=== PATIENT | male | born 1965 | race Caucasian/White ===

== ENCOUNTER 2021-11-22 00:42 | Inpatient (IN) ==
[2021-11-22] MEDS ORDERED: SODIUM CHLORIDE 0.9% 1000ML 1,000 ML IV ONE (00:58)
[2021-11-22] MEDS ORDERED: VANCOMYCIN HCL 1,750 MG in SODIUM CHLORIDE 0.9% 500 ML IV ONE (00:59)
[2021-11-22] MEDS ORDERED: MoRPHine SULFATE 4 MG/ML 1 ML CARP\\VIAL IV STA ×2 (00:59→03:11)
[2021-11-22] MEDS ORDERED: PIPERACILLIN/TAZOBACTAM 4.5 GM/120 ML BAG IV ONE (00:59)
[2021-11-22] MEDS ORDERED: ONDANSETRON INJ 2 MG/ML 2 ML VIAL IV STA (00:59)
[2021-11-22] MEDS ORDERED: VANCOMYCIN CONSULT ACTIVE PRN (00:59)
[2021-11-22] MEDS ORDERED: PIPERACILL/TAZOBAC CONSULT ACTIVE PRN (00:59)
--- NOTE | 2021-11-22 01:02 | Emergency Department Note ---
Impression & Plan Tenosynovitis of hand ADMIT ED Provider Note HPI: The patient is a 56-year-old gentleman who presents the emergency department chief complaint of left hand swelling for the past 2 days. Patient states he is unsure why this occurred. He states he does have a history of IV drug use but denies using any IV drugs in the past 3 years. Patient arrives with significant fusiform swelling of the dorsal aspect of the left hand on arrival, does appear to have some fluctuance between the fourth and fifth MCP joint area. There is no active purulent drainage from the area, patient has limited range of motion of all five digits of the hand secondary to pain and dorsal swelling. He is slightly tachycardic on arrival, he is afebrile. Patient denies any recent injuries, denies any known trauma to the area. He mainly denies any recent IV drug use. ROS: -MSK: Left hand swelling/pain *10 point review systems was conducted and is otherwise negative unless stated above *Outpatient medications and allergy history reviewed PE: General: Alert, NAD HEENT: Normocephalic, atraumatic Eyes: Extraocular eye movement is intact, no scleral erythema Pulmonary: Clear to auscultation bilaterally, no wheezing Cardio: Regular rate and rhythm GI: Abdomen is soft, nontender : No suprapubic tenderness MSK: Dorsal swelling throughout the entire aspect of the left hand with some moderate overlying erythema, there is no purulent drainage, range of motion is limited in all five digits of the left hand secondary to pain the patient does maintain flexion and extension of the digits without any fusiform swelling of the digits themselves, capillary refill is intact in all five digits of the left hand Skin: No evidence of rash, left hand findings as above Neuro: Alert, no focal deficits Psychiatric: Cooperative house 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 There is fluid tracking along the extensor tendon sheath over the distal hand involving the second, third, and fourth digits consistent with tenosynovitis. No subcutaneous gas or foreign body is identified. No abscess is identified. The osseous structures are intact and normally aligned. No acute fracture or dislocation is seen. Radiologist: Tong Luz MD Medical Decision Making: Patient presented to the emergency department with significant swelling on the dorsal aspect of his left hand. He denies any history of recent IV drug use. IV was established, blood work obtained, blood cultures were also drawn, patient was started on IV antibiotics with vancomycin and Zosyn prophylactically. CT imaging of the hand was obtained that shows diffuse subcutaneous edema over the dorsum of the hand, there is fluid tracking along the extensor tendon sheath over the distal hand that involves the second, third, and fourth digits consistent with tenosynovitis. There is no obvious identifiable abscess. I discussed the case with on-call orthopedics, Dr. Castellanos, he is in agreement for consultation and states one of his partners will likely be evaluating the patient for potential operative intervention. Patient will be admitted to the medicine team following my discussion with the hospitalist on-call, Dr. Ellison.of note, patient did incidentally test positive for COVID-19, denies any recent cough or shortness of breath. Patient was admitted in stable condition. Diagnosis: 1. Tenosynovitis of the left hand 2. Left hand pain/swelling 3. COVID-19 infection 4. Elevated ESR and CRP 5. History of IV drug abuse Disposition: Admission Abdiel Nelson DO Emergency Medicine Past Med/Surg History Social History Smoking Status: Current every day smoker Preferred Language: Yakut Feels Safe at Home: Yes Allergies Allergies Allergy/AdvReac Type Severity Reaction Status Date / Time No Known Allergies Allergy Unverified 11/22/21 00:49 Home Meds Home Medications Medication Instructions Recorded Confirmed No Known Home Medications 11/22/21 11/22/21 Results & Data (ED) Vital Signs Vital Signs - 24 hr 11/22/21 00:47 11/22/21 02:38 11/22/21 03:22 Temperature 36.7 C Temperature Source Temporal Artery Scan Pulse Rate 115 H Pulse Rate [Bilateral] 97 H 94 H Pulse Rhythm [Bilateral] Regular Regular Pulse Strength [Bilateral] Normal Normal Respiratory Rate 20 18 17 Respiratory Effort / Characteristics Non-Labored Non-Labored Spontaneous Non-Labored Spontaneous Respiratory Depth Normal Normal Normal Respiratory Pattern Regular Regular Blood Pressure 160/100 H Blood Pressure [Right Arm] 159/101 H 167/95 H Blood Pressure Mean 120 Blood Pressure Mean [Right Arm] 120 119 Blood Pressure Position [Right Arm] Sitting Sitting Pulse Oximetry 99 98 98 Oxygen Delivery Method Room Air Room Air Room Air Sepsis Recent Fever Within 48 Hours No Sepsis New/Unexplained Change in Mental Status No Sepsis Action Taken by Nursing No Action Required Laboratory Data Result diagrams: 11/22/21 01:44 11/22/21 01:44 Lab Results 11/22/21 11/22/21 11/22/21 Range/Units 01:44 01:44 01:44 WBC 19.26 H (4.8-10.8) K/uL RBC 4.97 (4.7-6.1) M/uL Hgb 14.8 (14.0-18.0) g/dL Hct 42.6 (42-52) % MCV 85.7 (80-100) fL MCH 29.8 (25-34) pg MCHC 34.7 (32-36) g/dL RDW Std Deviation 41.2 (36.4-46.3) fL RDW Coeff of Luna 13.2 (11.5-14.5) % Plt Count 284 (130-400) K/uL MPV 9.7 (7.4-10.4) fL Immature Gran % (Auto) 0.4 % Neut % (Auto) 83.8 % Lymph % (Auto) 6.1 % [place] % (Auto) 9.6 % Eos % (Auto) 0.0 % Baso % (Auto) 0.1 % Neut # (Auto) 16.14 H (1.4-6.5) K/uL Lymph # (Auto) 1.18 L (1.2-3.4) K/uL [place] # (Auto) 1.85 H (0.11-0.59) K/uL Eos # (Auto) 0.00 (0-0.5) K/uL Baso # (Auto) 0.02 (0-0.2) K/uL Immature Gran # (Auto) 0.07 H (0.00-0.02) K/uL ESR 62 H (0-20) mm/hr Sodium 132 L (136-145) mmol/L Potassium 3.4 L (3.5-5.1) mmol/L Chloride 99 (98-107) mmol/L Carbon Dioxide 23 (21-32) mmol/L Anion Gap 10 (3-11) BUN 11 (6-23) mg/dl Creatinine 0.84 (0.6-1.4) mg/dl Est Cr Clr Drug Dosing 102.6 ml/min Est GFR ( Amer) 114.2 ml/min Est GFR (Non-Af Amer) 98.6 ml/min BUN/Creatinine Ratio 13.1 (10-20) Glucose 137 H (70-99(Fasting)) mg/dl Calcium 10.1 (8.5-10.1) mg/dl C-Reactive Protein 10.19 H (0-0.5) mg/dl SARS-CoV-2, RNA, NAAT (NEGATIVE) 11/22/21 Range/Units 03:34 WBC (4.8-10.8) K/uL RBC (4.7-6.1) M/uL Hgb (14.0-18.0) g/dL Hct (42-52) % MCV (80-100) fL MCH (25-34) pg MCHC (32-36) g/dL RDW Std Deviation (36.4-46.3) fL RDW Coeff of Luna (11.5-14.5) % Plt Count (130-400) K/uL MPV (7.4-10.4) fL Immature Gran % (Auto) % Neut % (Auto) % Lymph % (Auto) % [place] % (Auto) % Eos % (Auto) % Baso % (Auto) % Neut # (Auto) (1.4-6.5) K/uL Lymph # (Auto) (1.2-3.4) K/uL [place] # (Auto) (0.11-0.59) K/uL Eos # (Auto) (0-0.5) K/uL Baso # (Auto) (0-0.2) K/uL Immature Gran # (Auto) (0.00-0.02) K/uL ESR (0-20) mm/hr Sodium (136-145) mmol/L Potassium (3.5-5.1) mmol/L Chloride (98-107) mmol/L Carbon Dioxide (21-32) mmol/L Anion Gap (3-11) BUN (6-23) mg/dl Creatinine (0.6-1.4) mg/dl Est Cr Clr Drug Dosing ml/min Est GFR ( Amer) ml/min Est GFR (Non-Af Amer) ml/min BUN/Creatinine Ratio (10-20) Glucose (70-99(Fasting)) mg/dl Calcium (8.5-10.1) mg/dl C-Reactive Protein (0-0.5) mg/dl SARS-CoV-2, RNA, NAAT POSITIVE A* (NEGATIVE) Administered Medications Lactated Ringer's (Lr) 1,000 mls @ 60 mls/hr IV .[id number] ONE Stop: 11/22/21 21:35 Last Admin: 11/22/21 05:01 Dose: 60 mls/hr Documented by: [id number] Nicotine (Nicotine 21 Mg/24 Hr Tdsy) 21 mg TD QAM NETO Stop: 12/22/21 04:59 Last Admin: 11/22/21 05:30 Dose: 21 mg Documented by: [id number] Discontinued Medications Sodium Chloride (Nss 1000ml) 1,000 mls @ 999 mls/hr IV .[id number] ONE Stop: 11/22/21 01:58 Last Infusion: 11/22/21 03:12 Dose: 0 mls/hr Documented by: [id number] Admin: 11/22/21 01:46 Dose: 999 mls/hr Documented by: [id number] Piperacillin Sod/Tazobactam Sod (Zosyn) 4.5 gm in 120 mls @ 240 mls/hr IV NOW ONE Stop: 11/22/21 01:28 Last Infusion: 11/22/21 02:51 Dose: 0 mls/hr Documented by: [id number] Admin: 11/22/21 02:09 Dose: 240 mls/hr Documented by: [id number] Vancomycin HCl 1,750 mg/ (Sodium Chloride) 535 mls @ 200 mls/hr IV NOW ONE Stop: 11/22/21 03:39 Last Admin: 11/22/21 02:46 Dose: 200 mls/hr Documented by: [id number] Ioversol (Optiray 320 100ml) 100 ml IV ONCE ONE Stop: 11/22/21 03:27 Last Admin: 11/22/21 03:26 Dose: 93 ml Documented by: [id number] Ketorolac Tromethamine (Ketorolac Tromethamine 15 Mg/Ml Vial) 15 mg IV NOW ONE Stop: 11/22/21 04:50 Last Admin: 11/22/21 04:58 Dose: 15 mg Documented by: [id number] Morphine Sulfate (Morphine Sulfate 4 Mg/Ml 1 Ml Carp\Vial) 4 mg IV NOW STA Stop: 11/22/21 01:00 Last Admin: 11/22/21 01:30 Dose: 4 mg Documented by: [id number] Morphine Sulfate (Morphine Sulfate 4 Mg/Ml 1 Ml Carp\Vial) Confirm Administered Dose 4 mg .ROUTE .STK-MED ONE Stop: 11/22/21 03:08 Last Admin: 11/22/21 03:11 Dose: 4 mg Documented by: [id number] Morphine Sulfate (Morphine Sulfate 4 Mg/Ml 1 Ml Carp\Vial) 4 mg IV NOW STA Stop: 11/22/21 03:12 Last Admin: 11/22/21 03:12 Dose: Not Given Documented by: [id number] Ondansetron HCl (Ondansetron Inj 2 Mg/Ml 2 Ml Vial) 4 mg IV NOW STA Stop: 11/22/21 01:00 Last Admin: 11/22/21 01:31 Dose: 4 mg Documented by: [id number] Potassium Chloride (Potassium Chloride Crtab 20 Meq Tabcr) 40 meq PO NOW STA Stop: 11/22/21 04:17 Last Admin: 11/22/21 04:59 Dose: 40 meq Documented by: [id number] Discharge Plan Visit Data Chief Complaint: Hand Injury/Pain Stated Complaint: LEFT 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 ED Provider: Abdiel Nelson Discharge Problem: Tenosynovitis of hand Discharge Instructions Interventions: ED Discharge Assessment Last Done: 11/22/21 05:46
[2021-11-22 01:59] LABS: Basophils # (auto) 0.02 K/uL (0-0.2); Basophils % (auto) 0.1 %; Hematocrit (blood only) 42.6 % (42-52); Hemoglobin 14.8 g/dL (14.0-18.0); Immature Granulocytes # (auto) 0.07 K/uL (0.00-0.02); Immature Granulocytes % (auto) 0.4 %; Lymphocytes # (auto) 1.18 K/uL (1.2-3.4); Lymphocytes % (auto) 6.1 %; Mean Corpuscular Hemoglobin 29.8 pg (25-34); Mean Corpuscular Hgb Conc 34.7 g/dL (32-36); Mean Corpuscular Volume 85.7 fL (80-100); Mean Platelet Volume 9.7 fL (7.4-10.4); Monocytes # (auto) 1.85 K/uL (0.11-0.59); Monocytes % (auto) 9.6 %; Neutrophils # (auto) 16.14 K/uL (1.4-6.5); Neutrophils % (auto) 83.8 %; Platelet Count 284 K/uL (130-400); RDW Coefficient of Variation 13.2 % (11.5-14.5); RDW Standard Deviation 41.2 fL (36.4-46.3); Red Blood Count 4.97 M/uL (4.7-6.1); White Blood Count 19.26 K/uL (4.8-10.8)
[2021-11-22 02:59] LABS: BUN Creatinine Ratio 13.1 (10-20); C Reactive Protein 10.19 mg/dl (0-0.5); Calcium 10.1 mg/dl (8.5-10.1); Creatinine Clr Calc Pharmacy 102.6 ml/min; Est GFR (African American) 114.2 ml/min; Est GFR (Non-African American) 98.6 ml/min; Potassium 3.4 mmol/L (3.5-5.1)
[2021-11-22] MEDS ORDERED: MoRPHine SULFATE 4 MG/ML 1 ML CARP\\VIAL ONE (03:07)
[2021-11-22] MEDS ORDERED: OPTIRAY 320 100ml IV ONE (03:26)
[2021-11-22] MEDS ORDERED: POTASSIUM CHLORIDE CRTAB 20 MEQ TABCR PO STA (04:16)
--- NOTE | 2021-11-22 04:24 | History & Physical Report ---
Date of Service November 22, 2021 Assessment & Plan (1) Sepsis: Plan: Secondary to left hand cellulitis ? Active IVDU asymptomatic COVID-19 infection situational hypertension Hyperglycemia rule out DM Hypokalemia Ongoing tobacco abuse Medical telemetry CS, Doxycycline, Cefepime Orthopedics consult Re: Left hand cellulitis, N.p.o. until patient evaluated by orthopedics in a.m. in anticipation of procedure. COVID-19 precautions analgesia Replace potassium, check magnesium check hemoglobin A1c check urine drug screen Nicotine patch DVT prophylaxis. Lovenox subcu Full code Text document was generated using [employer] voice recognition software. It may contain grammatical or spelling errors. Kindly contact undersigned for clarification of any documentation item in question. History of Present Illness Chief Complaint: Left hand swelling Primary Care Provider: NO PCP History obtained from patient and records. Medical history significant for ongoing tobacco abuse, past history IV drug use as per patient. 2 days history of painful left hand swelling without fever chills. Patient not sure how he got swelling. 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 Patient claims last IV drug use was about 3 years ago. No chest pain, no shortness of breath. No cough symptoms. No recent COVID-19 contacts. Patient has not received COVID-19 vaccination. No prior episodes as per patient. IV vancomycin and Zosyn given at the ER. 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 Allergies Allergy/AdvReac Type Severity Reaction Status Date / Time No Known Allergies Allergy Unverified 11/22/21 00:49 Home Medications Medication Instructions Recorded Confirmed Type No Known Home Medications 11/22/21 11/22/21 History Past Med/Surg History Social History Smoking Status: Current every day smoker Hx Substance Use: Yes Preferred Language: Kittitian Communication Ability: Effective Rice Drier Operator Required: No Beliefs That Will Affect Care: None Current Living Situation: Significant Other Other Information That Helps Us Care for You: Yes Feels Safe at Home: Yes Safety Concerns: Feels Safe At This Time Assistive Devices: None Review of Systems Review of Systems: As per HPI, all 10 systems reviewed, all other ROS negative Physical Exam Physical Exam: GENERAL: uncomfortable, no respiratory distress SKIN: Normal color, warm HEENT: [place] palpebral conjunctivae, no ptosis, dry buccal mucosa NECK : Supple, no tenderness CHEST : CTA, no tenderness HEART : Tachycardic, no obvious murmurs ABDOMEN: no distention, nontender EXTREMITIES : Tender erythematous swelling left hand dorsum, no LE swelling/tenderness, no other conspicuous deformities noted NEUROLOGIC : Coherent, no facial asymmetry, no other gross focality Results & Data Results & Data ([facility]) Vital Signs (Past 12 Hours) Vital Signs Temp Pulse Pulse Resp BP BP Pulse Ox 11/22/21 02:38 97 H 18 159/101 H 98 11/22/21 00:47 36.7 C 115 H 20 160/[address] left hand initial read: There is diffuse subcutaneous edema over the dorsumof the hand. There is fluid tracking along the extensor tendon sheath over the distal hand involving the second, third, and fourth digits consistent with tenosynovitis. No subcutaneous gas or foreign bodyis identified. No abscess is identified. The osseous structures are intact and normallyaligned. No acute fracture or dislocation is seen. Chest x-ray as per my interpretation no congestion EKG as per my interpretation : Rate 90, NSR, normal axis, no ischemia
[2021-11-22] MEDS ORDERED: KETOROLAC TROMETHAMINE 15 MG/ML VIAL IV ONE (04:49)
[2021-11-22] MEDS ORDERED: LORazepam 2 MG/1 ML VIAL IV PRN (04:56)
[2021-11-22] MEDS ORDERED: LACTATED RINGER'S 1,000 ML IV ONE (04:56)
[2021-11-22] MEDS: NICOTINE 21 MG/24 HR TDSY TD SCH (05:30)
[2021-11-22 05:44] LABS: Albumin Level 3.7 gm/dl (3.4-5.0); Bilirubin Direct 0.2 mg/dl (0-0.2); Bilirubin,Total 0.8 mg/dl (0.2-1.0); Magnesium 1.6 mg/dl (1.7-2.4)
[2021-11-22] MEDS ORDERED: PROMETHAZINE HCL 12.5 MG in SODIUM CHLORIDE 0.9% 50 ML IV PRN (05:52)
[2021-11-22] MEDS ORDERED: MAGNESIUM SULFATE / D5W 1 GM/100 ML BAG IV ONE (06:33)
--- NOTE | 2021-11-22 07:47 | XRay Report ---
XR chest 1V portable HISTORY: sepsis COMPARISON: None. FINDINGS: The cardiac silhouette is normal in size. No pleural effusions. No pneumothorax. No focal l licha consolidations to suggest pneumonia. No evidence for pulmonary edema. IMPRESSION: No acute process. ACT 112: Negative or not required by law. Electronically signed by: Xavier Mason M.D. 11/22/2021 7:45 AM
[2021-11-22 07:50] LABS: Estimated Average Glucose 126 mg/dl
[2021-11-22] MEDS: ACETAMINOPHEN 325 MG TAB PO PRN ×3 (07:55→20:56)
[2021-11-22] MEDS: oxyCODONE HCL IR 5 MG TAB (IMMEDIATE RELEASE) PO PRN ×2 (07:55→14:03)
[2021-11-22] MEDS: CEFEPIME 2,000 MG in SYRINGE 0 ML IV SCH ×2 (07:56→17:51)
--- NOTE | 2021-11-22 07:56 | XRay Report ---
XR hand LT min 3V routine CLINICAL HISTORY: PAIN. Evaluate for possible foreign body COMPARISON STUDY: No previous studies for comparison. TECHNIQUE: 3 left hand views FINDINGS: Bones: There is no evidence for an acute fracture or dislocation. There is no lytic or blastic lesion . Joints: The joint spaces are maintained. The bones are in anatomic alignment. Soft tissues: There is moderate soft tissue swelling seen particularly along the dorsum of the hand. There is no radiopaque foreign body. IMPRESSION: 1. No acute osseous pathology. 2. Moderate dorsal soft tissue swelling. ACT 112: Negative or not required by law. Electronically signed by: Darwin Sanford M.D. 11/22/2021 7:55 AM
[2021-11-22] MEDS: ENOXAPARIN INJ 40 MG/0.4 ML SYR SQ SCH (07:57)
[2021-11-22] MEDS ORDERED: DOXYCYCLINE HYCLATE 100 MG CAP PO SCH (09:00)
--- NOTE | 2021-11-22 09:02 | CT Scan Report ---
CT hand LT w con CLINICAL HISTORY: swelling. Eval for abscess dorsally . Swelling for 2 days COMPARISON STUDY: Standard radiographs from 11/22/2021 CT DOSE: 281.74 mGy.cm TECHNIQUE: Standard CT of the left hand is performed with Optiray 320, 93 mL of IV contrast. Multipla jeremiah reconstruction is performed. A dose lowering technique was utilized adhering to the principles o f ALARA. FINDINGS: Bones: There is no evidence for an acute fracture or dislocation. There are no lytic or blastic lesio ns. Joints: The joint spaces are maintained. The bones are in anatomic alignment. Soft tissues: There is a thick-walled, rim-enhancing fluid collection present along the dorsum of th e hand measuring approximately 3.9 x 1.0 x 5.6 cm in transverse, AP and craniocaudad dimensions. This is most characteristic of the presence of an abscess. Skin thickening and subcutaneous edema are als o present. There is no evidence for foreign body. IMPRESSION: CT confirms a thick-walled, rim-enhancing fluid collection along the dorsum of the hand m ost characteristic of the presence of an abscess. ACT 112: Negative or not required by law. Electronically signed by: Darwin Sanford M.D. 11/22/2021 9:00 AM
--- NOTE | 2021-11-22 10:27 | Pharmacy Report ---
Pharmacy Abx Dose Short Note - Date of Service November 22, 2021 - Assessment & Plan Assessment * 56 year old M receiving cefepime and vancomycin for treatment of hand cellulitis / possible abscess. 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 * Hx IVDU, last used ~ 3 years ago * SCr likely at/near baseline at 0.84 mg/dL Vancomycin * Will dose via AUC estimate * Will utilize troughs to help estimate AUC * Goal AUC 400-600 mcg/mL/hr Plan * Vancomycin 1250 mg IV q12h * Trough 11/23 @ 1330 Pharmacy will continue to follow and will adjust dose/frequency as necessary. Thank you.
[2021-11-22] MEDS: KETOROLAC TROMETHAMINE 15 MG/ML VIAL IV PRN ×2 (11:30→18:48)
[2021-11-22 12:20] LABS: Appearance Urine Clear (Clear); Bacteria Urine Automated Negative (Negative); Bilirubin Urine Negative (Negative); Blood Urine Negative (Negative); Color Urine Dark Yellow; Glucose Urine UA Negative (Negative); Ketones Urine 1+ (Negative); Leukocyte Esterase Urine Trace (Negative); Nitrite Urine Negative (Negative); Protein Urine Trace (Negative); RBC Urine Automated 0-4 /hpf (0-4); Specific Gravity Urine 1.041 (1.000-1.030); Urobilinogen Urine Negative (Negative); pH Urine 5.5 (4.5-7.5)
[2021-11-22 13:01] LABS: Amphetamines+Metham, Urine Pos (Neg); Barbiturates, Urine Neg (Neg); Benzodiazepine, Urine Neg (Neg); Cocaine, Urine Neg (Neg); MDMA (Ecstacy), Urine Pos (Neg); Methadone, Urine Neg (Neg); Opiate, Urine Pos (Neg); Phencyclidine, Urine Neg (Neg)
--- NOTE | 2021-11-22 13:22 | Electrocardiogram Report ---
Test Reason : Blood Pressure : / mmHG Vent. Rate : 090 BPM Atrial Rate : 090 BPM P-R Int : 096 ms QRS Dur : 080 ms QT Int : 362 ms P-R-T Axes : 050 079 072 degrees QTc Int : 442 ms Poor data quality, interpretation may be adversely affected Sinus rhythm with short [place] Otherwise normal ECG No previous ECGs available Confirmed by Shawn Miller ([id number]) on 11/22/2021 1:22:17 PM Referred By: REFERRED SELF Confirmed By:Shawn Miller
--- NOTE | 2021-11-22 13:39 | Orthopedic Consultation ---
Date of Consultation November 22, 2021 Assessment & Plan (1) Abscess of dorsum of left hand: X-rays and CT scan reviewed. Noted fluid collection on CT scan in the dorsum of the hand. Begin IV antibiotics at this time. Elevation of the left upper extremity on 2-3 pillows. Warm compresses the left hand if patient feels they are helping. I discussed the case with Dr. Rothman. He would like an MRI of the left hand. Will order. Plan will be for irrigation debridement of left hand on History of Present Illness Reason for Consultation: Cellulitis left hand/abscess formation dorsum of hand Attending Physician: Bao Chacko MD History of Present Illness Patient is a 56-year-old male who is being admitted to the hospital today by the [facility] service for infection of his left hand. Patient states that he works with a [employer] service in the area and is constantly outdoors and getting scratches and abrasions etc. from his work. Patient also has a history of IV drug abuse in the past but patient states he has not had any IV drugs in the last 3 years. He states that he noticed some increased redness and swelling of the dorsum of his left hand several days ago. It continued to worsen. He ended up putting warm compresses on the left hand which initially did not help however he states after the third compress it felt like it was getting better. However, the following day the patient began noticing increased swelling and pain and by late last night he was unable to control the pain and came into the emergency room. He was seen by the staff and x-rays were taken. Plain films were showing no foreign bodies but a CT scan of the left hand proved to show an abscess formation over the dorsum of the hand. Patient also noted to be Covid positive. Patient states he is currently asymptomatic. He was thusly admitted by the [facility] service and we have been asked to see him for his infection. Allergies Allergy/AdvReac Type Severity Reaction Status Date / Time No Known Allergies Allergy Unverified 11/22/21 00:49 Home Medications Medication Instructions Recorded Confirmed Type No Known Home Medications 11/22/21 11/22/21 History Patient History Social History Smoking Status: Current every day smoker Preferred Language: [place] Island[place] Communication Ability: Effective [employer] Developer Required: No Beliefs That Will Affect Care: None Current Living Situation: Significant Other Other Information That Helps Us Care for You: Yes Feels Safe at Home: Yes Safety Concerns: Feels Safe At This Time Assistive Devices: None Physical Exam Physical Exam: Patient currently sitting up in bed awake and alert. Complains of left hand pain. Patient is alert and oriented x3. No acute distress. Pleasant cooperative. On examination of his left hand he has a noted area of swelling over the dorsum of the hand. This is tender on palpation. He has erythema that extends up the forearm but not quite to the elbow. Elbow range of motion is unaffected and is nontender. Mild tenderness on palpation of the dorsal forearm. He is able to take his wrist through range of motion with mild tenderness noted at the dorsum of the hand. His swelling and erythema do go down into the fingers of the hand but the thumb is spared. He is able to move all of his fingers at this time however he is unable to make a fist secondary to swelling and pain. He has increased pain with passive flexion but no pain with passive extension. He has decreased sensation across fingers 2 through 5. Cap refills less than 2 seconds. Results & Data ([facility]) Vital Signs (Past 12 Hours) Vital Signs Temp Pulse Pulse Resp BP BP Pulse Ox 11/22/21 11:29 36.9 C 94 H 19 135/81 98 11/22/21 08:08 37.2 C 105 H 20 172/92 H 95 11/22/21 05:46 103 H 18 136/76 11/22/21 03:22 94 H 17 167/95 H 98 11/22/21 02:38 97 H 18 159/101 H 98 Laboratory Results Laboratory Results WBC 19.26 K/uL (4.8-10.8) H 11/22/21 01:44 RBC 4.97 M/uL (4.7-6.1) 11/22/21 01:44 Hgb 14.8 g/dL (14.0-18.0) 11/22/21 01:44 Hct 42.6 % (42-52) 11/22/21 01:44 MCV 85.7 fL (80-100) 11/22/21 01:44 MCH 29.8 pg (25-34) 11/22/21 01:44 MCHC 34.7 g/dL (32-36) 11/22/21 01:44 RDW Std Deviation 41.2 fL (36.4-46.3) 11/22/21 01:44 RDW Coeff of Luna 13.2 % (11.5-14.5) 11/22/21 01:44 Plt Count 284 K/uL (130-400) 11/22/21 01:44 MPV 9.7 fL (7.4-10.4) 11/22/21 01:44 Immature Gran % (Auto) 0.4 % 11/22/21 01:44 Neut % (Auto) 83.8 % 11/22/21 01:44 Lymph % (Auto) 6.1 % 11/22/21 01:44 [place] % (Auto) 9.6 % 11/22/21 01:44 Eos % (Auto) 0.0 % 11/22/21 01:44 Baso % (Auto) 0.1 % 11/22/21 01:44 Neut # (Auto) 16.14 K/uL (1.4-6.5) H 11/22/21 01:44 Lymph # (Auto) 1.18 K/uL (1.2-3.4) L 11/22/21 01:44 [place] # (Auto) 1.85 K/uL (0.11-0.59) H 11/22/21 01:44 Eos # (Auto) 0.00 K/uL (0-0.5) 11/22/21 01:44 Baso # (Auto) 0.02 K/uL (0-0.2) 11/22/21 01:44 Immature Gran # (Auto) 0.07 K/uL (0.00-0.02) H 11/22/21 01:44 ESR 62 mm/hr (0-20) H 11/22/21 01:44 Sodium 132 mmol/L (136-145) L 11/22/21 01:44 Potassium 3.4 mmol/L (3.5-5.1) L 11/22/21 01:44 Chloride 99 mmol/L (98-107) 11/22/21 01:44 Carbon Dioxide 23 mmol/L (21-32) 11/22/21 01:44 Anion Gap 10 (3-11) 11/22/21 01:44 BUN 11 mg/dl (6-23) 11/22/21 01:44 Creatinine 0.84 mg/dl (0.6-1.4) 11/22/21 01:44 Est Cr Clr Drug Dosing 102.6 ml/min 11/22/21 01:44 Est GFR ( Amer) 114.2 ml/min 11/22/21 01:44 Est GFR (Non-Af Amer) 98.6 ml/min 11/22/21 01:44 BUN/Creatinine Ratio 13.1 (10-20) 11/22/21 01:44 Glucose 137 mg/dl (70-99(Fasting)) H 11/22/21 01:44 Estimat Average Glucose 126 mg/dl 11/22/21 01:44 Hemoglobin A1c 6.0 % (4.5-5.6) H 11/22/21 01:44 Lactate 0.8 mmol/L (0.4-2.0) 11/22/21 05:08 Calcium 10.1 mg/dl (8.5-10.1) 11/22/21 01:44 Magnesium 1.6 mg/dl (1.7-2.4) L 11/22/21 05:00 Total Bilirubin 0.8 mg/dl (0.2-1.0) 11/22/21 05:00 Direct Bilirubin 0.2 mg/dl (0-0.2) 11/22/21 05:00 AST 23 U/L (13-39) 11/22/21 05:00 ALT 24 U/L (7-52) 11/22/21 05:00 Alkaline Phosphatase 86 U/L (34-104) 11/22/21 05:00 C-Reactive Protein 10.19 mg/dl (0-0.5) H 11/22/21 01:44 Total Protein 7.0 gm/dl (6.0-8.3) 11/22/21 05:00 Albumin 3.7 gm/dl (3.4-5.0) 11/22/21 05:00 Urine Color Dark Yellow 11/22/21 12:08 Urine Appearance Clear (Clear) 11/22/21 12:08 Urine pH 5.5 (4.5-7.5) 11/22/21 12:08 Ur Specific [place] 1.041 (1.000-1.030) H 11/22/21 12:08 Urine Protein Trace (Negative) H 11/22/21 12:08 Urine Glucose (UA) Negative (Negative) 11/22/21 12:08 Urine Ketones 1+ (Negative) H 11/22/21 12:08 Urine Blood Negative (Negative) 11/22/21 12:08 Urine Nitrite Negative (Negative) 11/22/21 12:08 Urine Bilirubin Negative (Negative) 11/22/21 12:08 Urine Urobilinogen Negative (Negative) 11/22/21 12:08 Ur Leukocyte Esterase Trace (Negative) H 11/22/21 12:08 Urine WBC (Auto) 10-30 /hpf (0-5) H 11/22/21 12:08 Urine RBC (Auto) 0-4 /hpf (0-4) 11/22/21 12:08 U Hyaline Cast (Auto) 1-5 /lpf (0-5) 11/22/21 12:08 U Epithel Cells (Auto) 10-20 /lpf (0-5) H 11/22/21 12:08 Urine Bacteria (Auto) Negative (Negative) 11/22/21 12:08 Urine Opiates Screen Pos (Neg) H 11/22/21 12:08 Ur Methadone, Qual Neg (Neg) 11/22/21 12:08 Urine Barbiturates Neg (Neg) 11/22/21 12:08 Ur Phencyclidine (PCP) Neg (Neg) 11/22/21 12:08 U Amphetamin/Meth Scrn Pos (Neg) H 11/22/21 12:08 MDMA (Ecstasy) Screen Pos (Neg) H 11/22/21 12:08 U Benzodiazepines Scrn Neg (Neg) 11/22/21 12:08 Ur Cocaine Metabolite Neg (Neg) 11/22/21 12:08 U Marijuana (THC) Screen Pos (Neg) H 11/22/21 12:08 SARS-CoV-2, RNA, NAAT POSITIVE (NEGATIVE) A* 11/22/21 03:[address] 11/22/21 00:58 CT hand LT w con CLINICAL HISTORY: swelling. Eval for abscess dorsally . Swelling for 2 days COMPARISON STUDY: Standard radiographs from 11/22/2021 CT DOSE: 281.74 mGy.cm TECHNIQUE: Standard CT of the left hand is performed with Optiray 320, 93 mL of IV contrast. Multiplanar reconstruction is performed. A dose lowering technique was utilized adhering to the principles of ALARA. FINDINGS: Bones: There is no evidence for an acute fracture or dislocation. There are no lytic or blastic lesions. Joints: The joint spaces are maintained. The bones are in anatomic alignment. Soft tissues: There is a thick-walled, rim-enhancing fluid collection present along the dorsum of the hand measuring approximately 3.9 x 1.0 x 5.6 cm in transverse, AP and craniocaudad dimensions. This is most characteristic of the presence of an abscess. Skin thickening and subcutaneous edema are also present. There is no evidence for foreign body. IMPRESSION: CT confirms a thick-walled, rim-enhancing fluid collection along the dorsum of the hand most characteristic of the presence of an abscess. ACT 112: Negative or not required by law. Electronically signed by: Darwin Sanford M.D. 11/22/2021 9:00 AM Hand X-Ray 11/22/21 01:11 XR hand LT min 3V routine CLINICAL HISTORY: PAIN. Evaluate for possible foreign body COMPARISON STUDY: No previous studies for comparison. TECHNIQUE: 3 left hand views FINDINGS: Bones: There is no evidence for an acute fracture or dislocation. There is no lytic or blastic lesion. Joints: The joint spaces are maintained. The bones are in anatomic alignment. Soft tissues: There is moderate soft tissue swelling seen particularly along the dorsum of the hand. There is no radiopaque foreign body. IMPRESSION: 1. No acute osseous pathology. 2. Moderate dorsal soft tissue swelling. ACT 112: Negative or not required by law. Electronically signed by: Darwin Sanford M.D. 11/22/2021 7:55 AM
[2021-11-22] MEDS: VANCOMYCIN HCL 1,250 MG in SODIUM CHLORIDE 0.9% 250 ML IV SCH (13:56)
--- NOTE | 2021-11-22 16:09 | Hospitalist Progress Note ---
Date of Service November 22, 2021 Assessment & Plan (1) Sepsis: Plan: Sepsis Left hand cellulitis/Abscess Suspected IV drug use. Patient denies using them currently --Hand CT:CT confirms a thick-walled, rim-enhancing fluid collection along the dorsum of the hand most characteristic of the presence of an abscess. 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 Elevated blood pressure Likely secondary to pain Monitor DVT Px: Lovenox SQ Code Status Full code Admission and Anticipated Discharge Date Admission Date: November 22, 2021 Subjective Patient is seen and examined at bedside States having left hand pain, swelling, redness Denies any chest pain, shortness of breath, dizziness, nausea, abdominal pain Discussed with orthopedic surgery Offers no other complaints Review of Systems Review of Systems: All systems reviewed & are unremarkable except as noted in Subjective Physical Exam Physical Exam: Physical Exam: Vitals signs as noted above General Appearance:Moderately built and nourished, no apparent distress Head: normocephalic, Atraumatic Eyes: normal inspection, EOMI Neck: supple, Trachea midline Respiratory/Chest: Normal breath sounds, CTA Cardiovascular: S1, S2, No murmur Abdomen/GI:Soft, Non tender, Bowel sounds present Extremities/Musculoskeletal:normal inspection, Left hand swelling, tender, erythematous Neurologic/Psych:AAOX3, grossly no focal neurological deficits Skin: normal color,warm, +Multiple Tattoos Results & Data Results & Data ([facility]) Vital Signs (Past 12 Hours) Vital Signs Temp Pulse Pulse Resp BP BP Pulse Ox 11/22/21 15:44 37.4 C 97 H 16 150/64 H 98 11/22/21 15:35 37.4 C 97 H 16 150/64 H 98 11/22/21 11:29 36.9 C 94 H 19 135/81 98 11/22/21 08:08 37.2 C 105 H 20 172/92 H 95 11/22/21 05:46 103 H 18 136/76 Laboratory Results Short CBC 11/22/21 Range/Units 01:44 WBC 19.26 H (4.8-10.8) K/uL Hgb 14.8 (14.0-18.0) g/dL Hct 42.6 (42-52) % Plt Count 284 (130-400) K/uL BMP 11/22/21 01:44 Sodium 132 L Potassium 3.4 L Chloride 99 Carbon Dioxide 23 BUN 11 Creatinine 0.84 Glucose 137 H Calcium 10.1 Liver Function 11/22/21 Range/Units 05:00 Total Bilirubin 0.8 (0.2-1.0) mg/dl Direct Bilirubin 0.2 (0-0.2) mg/dl AST 23 (13-39) U/L ALT 24 (7-52) U/L Alkaline Phosphatase 86 (34-104) U/L Albumin 3.7 (3.4-5.0) gm/dl Urine 11/22/21 Range/Units 12:08 Urine Color Dark Yellow Urine Appearance Clear (Clear) Urine pH 5.5 (4.5-7.5) Ur Specific [place] 1.041 H (1.000-1.030) Urine Protein Trace H (Negative) Urine Glucose (UA) Negative (Negative)
[2021-11-22] MEDS: IBUPROFEN 200 MG TAB PO PRN ×2 (16:38→22:54)
[2021-11-22] MEDS ORDERED: LACTATED RINGER'S 1,000 ML IV SCH (22:30)
[2021-11-22] MEDS ORDERED: GADOBUTROL 65ML VIAL IV ONE (22:51)
[2021-11-23] MEDS: CEFEPIME 2,000 MG in SYRINGE 0 ML IV SCH ×3 (00:21→17:37)
[2021-11-23] MEDS: KETOROLAC TROMETHAMINE 15 MG/ML VIAL IV PRN ×3 (00:22→21:42)
[2021-11-23] MEDS: VANCOMYCIN HCL 1,250 MG in SODIUM CHLORIDE 0.9% 250 ML IV SCH ×3 (02:09→20:02)
[2021-11-23 08:10] LABS: Basophils # (auto) 0.02 K/uL (0-0.2); Basophils % (auto) 0.1 %; Eosinophils # (auto) 0.04 K/uL (0-0.5); Eosinophils % (auto) 0.3 %; Hematocrit (blood only) 38.4 % (42-52); Hemoglobin 13.1 g/dL (14.0-18.0); Immature Granulocytes # (auto) 0.04 K/uL (0.00-0.02); Immature Granulocytes % (auto) 0.3 %; Lymphocytes # (auto) 1.26 K/uL (1.2-3.4); Lymphocytes % (auto) 9.4 %; Mean Corpuscular Hemoglobin 29.6 pg (25-34); Mean Corpuscular Hgb Conc 34.1 g/dL (32-36); Mean Corpuscular Volume 86.7 fL (80-100); Mean Platelet Volume 9.7 fL (7.4-10.4); Monocytes # (auto) 1.06 K/uL (0.11-0.59); Monocytes % (auto) 7.9 %; Neutrophils # (auto) 10.94 K/uL (1.4-6.5); Platelet Count 269 K/uL (130-400); RDW Coefficient of Variation 13.8 % (11.5-14.5); RDW Standard Deviation 43.8 fL (36.4-46.3); Red Blood Count 4.43 M/uL (4.7-6.1); White Blood Count 13.36 K/uL (4.8-10.8)
[2021-11-23] MEDS: ENOXAPARIN INJ 40 MG/0.4 ML SYR SQ SCH (08:28)
[2021-11-23 09:06] LABS: BUN Creatinine Ratio 10.1 (10-20); Calcium 8.4 mg/dl (8.5-10.1); Creatinine Clr Calc Pharmacy 124.9 ml/min; Est GFR (African American) 123.9 ml/min; Est GFR (Non-African American) 106.9 ml/min; Magnesium 2.1 mg/dl (1.7-2.4); Potassium 3.6 mmol/L (3.5-5.1)
[2021-11-23] MEDS: NICOTINE 21 MG/24 HR TDSY TD SCH (09:08)
[2021-11-23] MEDS: oxyCODONE HCL IR 5 MG TAB (IMMEDIATE RELEASE) PO PRN ×3 (09:08→20:01)
--- NOTE | 2021-11-23 09:32 | Magnetic Resonance Report ---
MR hand LT wo/w con CLINICAL HISTORY: abscess/tenosynovitis left hand. COMPARISON: CT of the left hand from 11/22/2021 TECHNIQUE: Multiplanar multisequence images of the left hand were performed without and with Gadavis t, 8 mL of IV contrast. FINDINGS: Bones: There is no MR evidence for osteomyelitis.. Homogeneous marrow signal is seen throughout the i ezra bones of hand without evidence for marrow edema or marrow replacement. There is no evidence for an acute or remote fracture. There is no evidence for lytic lesion or bone destruction. No abnormal enhancement is demonstrated. Joints: The metacarpal phalangeal joints are maintained. The interphalangeal joints are maintained. T here is no evidence for an erosive arthropathy. There is no evidence for an intra-articular effusion. . Tendons and ligaments: The extensor tendons along the dorsum of the hand are intact. There is no evid ence for tendon tear or tendinopathy. The flexor tendons along the volar aspect of the hand are intac t. There is no evidence for tendon tear or tendinopathy. There is no encroachment upon the carpal tunnel. The median nerve appears normal. The supporting ligamentous structures are intact. . Soft tissues: As seen on the CT examination, there is a large fluid collection present along the dors um of the hand which extends to the bases of the third and fourth proximal phalanges. It measures meg roximately 4.9 x 0.9 x 6.0 cm in transverse, AP and craniocaudad dimensions. Following contrast admin istration, there is rim enhancement surrounding the fluid collection with no enhancement of the fluid as to be expected with an abscess. Diffuse edematous changes are present within the subcutaneous fat along the dorsum of the hand as wel l. These demonstrate changes extend into the dorsal aspect of the second through fifth fingers. No ot her fluid collections are identified. . IMPRESSION: 1. MR confirms a large rim-enhancing fluid collection along the dorsum of the hand and bases of the t hird and fourth fingers characteristic of an abscess. 2. Diffuse cellulitis is also present along the dorsum of the hand and bases of the second through fi fth fingers. 3. There is no MR evidence for osteomyelitis.. ACT 112: Negative or not required by law. Electronically signed by: Darwin Sanford M.D. 11/23/2021 9:31 AM
[2021-11-23] MEDS ORDERED: cefTRIAXone SODIUM 2,000 MG in DEXTROSE 5% 50 ML IV SCH (11:00)
[2021-11-23] MEDS ORDERED: VANCOMYCIN TROUGH ONE (13:30)
[2021-11-23] MEDS ORDERED: MoRPHine SULFATE 4 MG/ML 1 ML CARP\\VIAL IV PRN (14:36)
--- NOTE | 2021-11-23 15:07 | Orthopedic Progress Note ---
Date of Service November 23, 2021 Assessment & Plan (1) Abscess of dorsum of left hand: Plan: HD 1 Pt with improvement proximally of the cellulitis/forearm but continues to worsen a bit over the dorsum of the hand. Continue IV antibx. Discussed pain control with Dr. Polanco. Additions made. Plan NPO after midnight. Hold Lovenox. Case discussed with Dr. Honeycutt. For I/D left hand tomorrow by Dr. Rothman Admission and Anticipated Discharge Date Admission Date: November 22, 2021 Subjective Hospital day 1 Patient lying in bed awake and alert. States he has not had much in the way of pain medication in the last few hours. He states that he feels that the dorsum of his hand is worse today and states that he has a little bit less range of motion of his fingers. No other complaints. Physical Exam Physical Exam: On examination of his left arm, he has notably less erythema up the forearm. He states that that has gotten better. However he continues to have slightly increased from yesterday and the swelling of the dorsum of his hand and also deepening erythema compared to yesterday. He has a little bit less range of motion of his fingers today secondary to pain. Continues with the decreased sensation in the fingertips. Cap refill continues to be less than 2 seconds. Small area between the third and fourth MP joints that appears to be small blister. Results & Data ([facility]) Vital Signs (Past 12 Hours) Vital Signs Temp Pulse Pulse Resp BP Pulse Ox 11/23/21 07:19 56 L 11/23/21 04:15 87 162/86 H 11/23/21 03:02 37.4 C 77 18 173/82 H 96 Diagnostic Findings Patient:CAROLYN SILVA Admit Date:11/22/21 MR#:[id number] Address1:[address] [place] [address] Acct ID:[id number] Address2: Date:1965 [facility] Zip:[place] [address] Age:56 Location:2N Sex:M Room/Bed:N278-2 Att Phy:Papito Polanco MD Diagnosis:HAND SEPSIS, ASYMP COVID Cathleen Phy:PCP,NO Service Date:11/22/21 Fam Phy: Interpreting Phy:Darwin Sanford MDAdmit Phy:Orlin Mejía MD Ordering Phy:Tawanda Miranda PA-C cc: ~ MR hand LT wo/w con CLINICAL HISTORY: abscess/tenosynovitis left hand. COMPARISON: CT of the left hand from 11/22/2021 TECHNIQUE: Multiplanar multisequence images of the left hand were performed without and with Gadavist, 8 mL of IV contrast. FINDINGS: Bones: There is no MR evidence for osteomyelitis.. Homogeneous marrow signal is seen throughout the imaged bones of hand without evidence for marrow edema or marrow replacement. There is no evidence for an acute or remote fracture. There is no evidence for lytic lesion or bone destruction. No abnormal enhancement is demonstrated. Joints: The metacarpal phalangeal joints are maintained. The interphalangeal joints are maintained. There is no evidence for an erosive arthropathy. There is no evidence for an intra-articular effusion. . Tendons and ligaments: The extensor tendons along the dorsum of the hand are intact. There is no evidence for tendon tear or tendinopathy. The flexor tendons along the volar aspect of the hand are intact. There is no evidence for tendon tear or tendinopathy. There is no encroachment upon the carpal tunnel. The median nerve appears normal. The supporting ligamentous structures are intact. . Soft tissues: As seen on the CT examination, there is a large fluid collection present along the dorsum of the hand which extends to the bases of the third and fourth proximal phalanges. It measures approximately 4.9 x 0.9 x 6.0 cm in transverse, AP and craniocaudad dimensions. Following contrast administration, there is rim enhancement surrounding the fluid collection with no enhancement of the fluid as to be expected with an abscess. Diffuse edematous changes are present within the subcutaneous fat along the dorsum of the hand as well. These demonstrate changes extend into the dorsal aspect of the second through fifth fingers. No other fluid collections are id entified. . IMPRESSION: 1. MR confirms a large rim-enhancing fluid collection along the dorsum of the hand and bases of the third and fourth fingers characteristic of an abscess. 2. Diffuse cellulitis is also present along the dorsum of the hand and bases of the second through fifth fingers. 3. There is no MR evidence for osteomyelitis.. ACT 112: Negative or not required by law.
--- NOTE | 2021-11-23 15:10 | Pharmacy Report ---
Pharmacy Vanc AUC Short Note - Date of Service November 23, 2021 - Assessment & Plan Assessment 56 year old M receiving vancomycin/Rocephin for treatment of hand abscess. Pertinent microbiologic data includes: N/A. Day # 2 of antimicrobial therapy. Plan Vancomycin * AUC/CAROLINA is the preferred PK/PD target for vancomycin * AUC guided dosing is effective and associated with decreased risk of nephrotoxicity compared to traditional trough targets * Trough level of 4.6 mcg/mL is predicted to achieve less than target AUC/CAROLINA of 400-600 mg/L.hr * Change to 1250 mg IV every 8 hours (associated with potential renal toxicity of 8%) * Trough ordered for: 11/25/21 prior to 0400 Pharmacy will continue to follow and will adjust dose/frequency as necessary. Thank you.
--- NOTE | 2021-11-23 15:30 | Anesthesiology Consultation ---
Date of Service November 23, 2021 Assessment & Plan Chart Review Chart Review: Acceptable Risk for Surgery and Patient NOT seen in Pre Admission Testing Consults Requested none History Surgery Operation Date: 11/24/21 14:25 Proposed Procedures p Incision and Drainage Left Hand - Lai Rothman M.D. Height/Weight Height: 5 ft 10 in Weight: 83.9 kg Allergies Allergy/AdvReac Type Severity Reaction Status Date / Time No Known Allergies Allergy Unverified 11/22/21 00:49 Medications Home Medications Medication Instructions Recorded Confirmed Last Taken No Known Home Medications 11/22/21 11/22/21 Unknown Active Medications Generic Name Dose Route Start Last Admin Trade Name Freq PRN Reason Stop Dose Admin Acetaminophen 650 mg 11/22/21 05:52 11/22/21 20:56 Acetaminophen 325 Mg Tab PO 12/22/21 05:51 650 mg Q4H PRN Administration Pain or Fever Ceftriaxone Sodium 2,000 mg/ 70 mls @ 140 mls/hr 11/23/21 11:00 11/23/21 13:29 Dextrose IV 11/30/21 10:59 Infused Q24H NETO Infusion Ibuprofen 200 mg 11/22/21 04:56 11/22/21 22:54 Ibuprofen 200 Mg Tab PO 12/22/21 04:55 200 mg Q6H PRN Administration Mild Pain Ketorolac Tromethamine 15 mg 11/22/21 04:56 11/23/21 06:06 Ketorolac Tromethamine 15 Mg/Ml Vial IV 11/27/21 04:55 15 mg Q6H PRN Administration Pain Miscellaneous 1 ea 11/23/21 08:59 11/23/21 08:27 Remove Nicoderm Patch N/A 12/23/21 08:58 1 ea [id number] NETO Administration Nicotine 21 mg 11/22/21 05:00 11/23/21 09:08 Nicotine 21 Mg/24 Hr Tdsy TD 12/22/21 04:59 21 mg QAM NETO Administration Exercise / Class Metabolic Activity II 4-5 Yardwork/Stairs/Walk up hill Past Anesthesia History No Hx of Anesthesia Complications and No Family Hx of Anesthesia Complications History of PONV No Hx of PONV and No Hx of Motion Sickness Social History Smoking Status: Current every day smoker tobacco type: cigarettes Hx Substance Use: Yes substance use type: marijuana, opiates and methamphetamine Physical Exam Vital Signs Last Vital Signs Temp 37.4 C 11/23/21 03:02 Pulse 86 11/23/21 15:09 Resp 18 11/23/21 03:02 BP 162/86 H 11/23/21 04:15 Pulse Ox 96 11/23/21 03:02 Testing Laboratory Results 11/23/21 07:47 11/23/21 07:47 Hemoglobin A1c 6.0 % (4.5-5.6) H 11/22/21 01:44 Urine Color Dark Yellow 11/22/21 12:08 Urine Appearance Clear (Clear) 11/22/21 12:08 Urine pH 5.5 (4.5-7.5) 11/22/21 12:08 Ur Specific [place] 1.041 (1.000-1.030) H 11/22/21 12:08 Urine Protein Trace (Negative) H 11/22/21 12:08 Urine Glucose (UA) Negative (Negative) 11/22/21 12:08 Urine Ketones 1+ (Negative) H 11/22/21 12:08 Urine Nitrite Negative (Negative) 11/22/21 12:08 Ur Leukocyte Esterase Trace (Negative) H 11/22/21 12:08 Urine WBC (Auto) 10-30 /hpf (0-5) H 11/22/21 12:08 Urine RBC (Auto) 0-4 /hpf (0-4) 11/22/21 12:08 U Hyaline Cast (Auto) 1-5 /lpf (0-5) 11/22/21 12:08 U Epithel Cells (Auto) 10-20 /lpf (0-5) H 11/22/21 12:08 Urine Bacteria (Auto) Negative (Negative) 11/22/21 12:08 11/22/21 12:08 Urine Culture - Preliminary Urine,Clean Catch No growth - Less than 1,000 colonies/mL, Final report to follow. 11/22/21 01:48 Aerobic Blood Culture - Preliminary Blood No growth in Aerobic bottle after 24 hours. Anaerobic Blood Culture - Preliminary No growth in Anaerobic bottle after 24 hours. 11/22/21 01:44 Aerobic Blood Culture - Preliminary Blood No growth in Aerobic bottle after 24 hours. Anaerobic Blood Culture - Preliminary No growth in Anaerobic bottle after 24 hours. Electrocardiogram Date: 11/22/21 Findings: + NSR @ (@ 90w/short IN) Chest X-Ray Date: 11/22/21 Findings: + NAD
[2021-11-23] MEDS ORDERED: CONSULT PHARMACY STA (16:19)
[2021-11-23] MEDS ORDERED: hydrALAZINE HCL 20 MG/ML VIAL IV PRN (16:27)
--- NOTE | 2021-11-23 16:56 | Hospitalist Progress Note ---
Date of Service November 23, 2021 Assessment & Plan (1) Sepsis: Plan: per Dr. Chacko's notes with addendum: Sepsis Left hand cellulitis, Abscess Suspected IV drug use. Patient denies using them currently --Hand CT:CT confirms a thick-walled, rim-enhancing fluid collection along the dorsum of the hand most characteristic of the presence of an abscess. --MRI: 1. MR confirms a large rim-enhancing fluid collection along the dorsum of the hand and bases of the third and fourth fingers characteristic of an abscess. 2. Diffuse cellulitis is also present along the dorsum of the hand and bases of the second through fifth fingers. 3. There is no MR evidence for osteomyelitis.. 11/23/21 Blood culture: negative so far urine culture: No growth continue Vanco + Cefepime Day 2 NSS pain control with scheduled Tylenol, PRN Oxycodone and Dilaudid discussed with Ortho- for I&D tomorrow COVID 19 infection Unvaccinated state respiratory status stable, 96% on room air Chest x-ray showed no acute process CRP 10.19 no treatment indicated at this point Hypokalemia Hypomagnesemia - resolved Prediabetes HbA1c 6.0 Ongoing tobacco abuse Counseled to quit Nicotine patch Elevated blood pressure Likely secondary to pain PRN hydralazine DVT Px: Lovenox SQ Code Status Full code Admission and Anticipated Discharge Date Admission Date: November 22, 2021 Subjective ff up for L hand abscess, etc seen resting in bed reports significant L hand pain no chest pain, dyspnea, palpitations, dizziness no cough no fever/chills no other symptoms Review of Systems Review of Systems: all noted and negative except for above Physical Exam Physical Exam: General- oriented x 3, not in distress, speaks in sentences with no effort or accessory muscle use Head- atraumatic Eyes- PERRL, EOMI, anicteric ENT- oropharynx clear Neck- supple, no JVD, no adenopathy, no thyromegaly; carotids +2/2, no bruits appreciated Lungs- clear to auscultation bilaterally, no rales/wheezes Heart- normal rate, regular rhythm; no murmur, no gallop, no rub appreciated Abdomen- normal bowel sounds, nondistended, soft, nontender, no masses or hepatosplenomegaly Extremities- L hand- significant edema, moderate erythema, warmth, significant tenderness poor ROM due to pain fingers also has edema no pretibial edema, no calf tenderness; peripheral pulses intact Neuro- alert, oriented x 3; CN 2-12 grossly intact; motor 5/5 bilaterally;sensation 100% on all extremities; no other gross focal neurologic deficits Skin- warm & dry Results & Data Results & Data ([facility]) Vital Signs (Past 12 Hours) Vital Signs Pulse 11/23/21 15:09 86 11/23/21 07:19 56 L all noted and reviewed including below
[2021-11-23] MEDS: HYDROmorphone INJ 0.5 MG/0.5 ML SYR IV PRN (17:13)
[2021-11-23] MEDS: SODIUM CHLORIDE 0.9% 1000ML 1,000 ML IV SCH (17:17)
[2021-11-23] MEDS: ACETAMINOPHEN 325 MG TAB PO SCH (17:17)
[2021-11-24] MEDS: ACETAMINOPHEN 325 MG TAB PO SCH ×5 (01:19→22:06)
[2021-11-24] MEDS: oxyCODONE HCL IR 5 MG TAB (IMMEDIATE RELEASE) PO PRN ×2 (01:44→17:15)
[2021-11-24] MEDS: IBUPROFEN 200 MG TAB PO PRN (01:45)
[2021-11-24] MEDS: VANCOMYCIN HCL 1,250 MG in SODIUM CHLORIDE 0.9% 250 ML IV SCH ×3 (04:07→21:13)
[2021-11-24] MEDS: KETOROLAC TROMETHAMINE 15 MG/ML VIAL IV PRN ×3 (04:09→21:14)
[2021-11-24] MEDS: CEFEPIME 2,000 MG in SYRINGE 0 ML IV SCH ×2 (06:42→17:15)
[2021-11-24 08:18] LABS: Creatinine Clr Calc Pharmacy 116.5 ml/min; Est GFR (African American) 120.4 ml/min; Est GFR (Non-African American) 103.8 ml/min
[2021-11-24] MEDS: HYDROmorphone INJ 0.5 MG/0.5 ML SYR IV PRN ×2 (09:04→12:30)
[2021-11-24] MEDS: SODIUM CHLORIDE 0.9% 1000ML 1,000 ML IV SCH (09:06)
[2021-11-24] MEDS: NICOTINE 21 MG/24 HR TDSY TD SCH (09:10)
[2021-11-24 10:04] LABS: Basophils # (auto) 0.01 K/uL (0-0.2); Basophils % (auto) 0.1 %; Eosinophils # (auto) 0.11 K/uL (0-0.5); Eosinophils % (auto) 0.9 %; Hematocrit (blood only) 38.3 % (42-52); Hemoglobin 12.8 g/dL (14.0-18.0); Immature Granulocytes # (auto) 0.04 K/uL (0.00-0.02); Immature Granulocytes % (auto) 0.3 %; Lymphocytes # (auto) 1.33 K/uL (1.2-3.4); Lymphocytes % (auto) 11.2 %; Mean Corpuscular Hemoglobin 29.3 pg (25-34); Mean Corpuscular Hgb Conc 33.4 g/dL (32-36); Mean Corpuscular Volume 87.6 fL (80-100); Mean Platelet Volume 10.4 fL (7.4-10.4); Monocytes # (auto) 0.87 K/uL (0.11-0.59); Monocytes % (auto) 7.3 %; Neutrophils # (auto) 9.48 K/uL (1.4-6.5); Neutrophils % (auto) 80.2 %; Platelet Count 334 K/uL (130-400); RDW Coefficient of Variation 13.6 % (11.5-14.5); RDW Standard Deviation 43.7 fL (36.4-46.3); Red Blood Count 4.37 M/uL (4.7-6.1); White Blood Count 11.84 K/uL (4.8-10.8)
[2021-11-24 10:21] LABS: BUN Creatinine Ratio 7.6 (10-20); Creatinine Clr Calc Pharmacy 109.1 ml/min; Est GFR (African American) 117.2 ml/min; Est GFR (Non-African American) 101.1 ml/min; Potassium 3.8 mmol/L (3.5-5.1)
--- NOTE | 2021-11-24 13:20 | Hospitalist Progress Note ---
Date of Service November 24, 2021 Assessment & Plan (1) Sepsis: Plan: (1) Sepsis: Plan: per Dr. Chacko's notes with addendum: Sepsis Left hand cellulitis, Abscess Suspected IV drug use. Patient denies using them currently --Hand CT:CT confirms a thick-walled, rim-enhancing fluid collection along the dorsum of the hand most characteristic of the presence of an abscess. --MRI: 1. MR confirms a large rim-enhancing fluid collection along the dorsum of the hand and bases of the third and fourth fingers characteristic of an abscess. 2. Diffuse cellulitis is also present along the dorsum of the hand and bases of the second through fifth fingers. 3. There is no MR evidence for osteomyelitis.. 11/24/21 Blood culture: negative so far urine culture: No growth continue Vanco + Cefepime Day 3 NSS pain control with scheduled Tylenol, PRN Oxycodone and Dilaudid discussed with Ortho- for I&D today will need to wait for drainage culture prior to discharge COVID 19 infection Unvaccinated state remains stable respiratory status stable, 96% on room air Chest x-ray showed no acute process CRP 10.19 no treatment indicated at this point Hypokalemia Hypomagnesemia - resolved Prediabetes HbA1c 6.0 Ongoing tobacco abuse Counseled to quit Nicotine patch Elevated blood pressure Likely secondary to pain PRN hydralazine DVT Px: Lovenox SQ Code Status Full code plan of care discussed with patient in detail and at length all questions answered he is understanding, agreeable, comfortable with the plan of care Admission and Anticipated Discharge Date Admission Date: November 22, 2021 Subjective ff up for L hand abscess, etc seen resting in bed, not in distress L hand pain well controlled feels swelling is less today no fever/chills denies cough, shortness of breath, chest pain no leg pain denies other symptoms Review of Systems Review of Systems: all noted and negative except for above Physical Exam Physical Exam: General- oriented x 3, not in distress, speaks in sentences with no effort or accessory muscle use Eyes- anicteric Neck- no JVD Lungs- clear breath sounds bilaterally, no rales/wheezes Heart- normal rate, regular rhythm; no murmurs Abdomen- normal bowel sounds, nondistended, soft, nontender Extremities- no pretibial edema, no calf tenderness left hand: significant edema of the dorsum of the hand, less edema of the fingers, less erythema and warmth still very tender better ROM of fingers and wrist Neuro- alert, oriented x 3; no gross focal neurologic deficits Skin- warm & dry Results & Data Results & Data ([facility]) Vital Signs (Past 12 Hours) Vital Signs Temp Pulse Pulse Resp BP Pulse Ox 11/24/21 11:19 37.1 C 71 18 161/92 H 96 11/24/21 07:46 36.8 C 72 18 157/82 H 96 11/24/21 07:41 61 11/24/21 03:57 37.1 C 75 18 161/85 H 94 11/24/21 02:05 71 all noted and reviewed including below
[2021-11-24] MEDS ORDERED: fentaNYL citrate 100 MCG/2 ML VIAL ONE ×2 (13:47→14:05)
[2021-11-24] MEDS ORDERED: MIDAZOLAM HCL 1 MG/ML 2ML VIAL ONE (13:47)
[2021-11-24] MEDS ORDERED: LIDOCAINE 2% 2 ML VIAL/AMP(20MG/ML) INFIL ONE (13:48)
[2021-11-24] MEDS ORDERED: ONDANSETRON INJ 2 MG/ML 2 ML VIAL ONE (13:48)
[2021-11-24] MEDS ORDERED: DEXAMETHASONE SOD INJ 4 MG/ML VIAL ONE ×2 (13:48→15:49)
[2021-11-24] MEDS ORDERED: PROPOFOL IV EMULSION 10 MG/ML 20 ML VIAL IV ONE ×2 (13:48→15:48)
[2021-11-24] MEDS ORDERED: SUCCINYLCHOLINE CHLORIDE 20 MG/ML 10 ML VIAL IV ONE (13:48)
[2021-11-24] MEDS ORDERED: KETOROLAC 30 MG/ML VIAL ONE (13:58)
[2021-11-24] MEDS ORDERED: KETAMINE 50 MG/5 ML SYRINGE ONE (14:04)
[2021-11-24] MEDS ORDERED: BUPIVACAINE 0.5 % 5 MG/1 ML MPF 30ML VIAL ONE (14:08)
[2021-11-24] MEDS ORDERED: LIDOCAINE 1% LOCAL 20 ML VIAL ONE (14:08)
--- NOTE | 2021-11-24 14:13 | History & Physical Bridge Note ---
Date of Service November 24, 2021 History & Physical Bridge Note I have examined the patient, reviewed the History & Physical and in the interval since the performance of the History & Physical I have noted the following changes of clinical significance: Patient's exam and imaging is consistent with a left dorsal hand abscess. He says this has been going on since Sunday. As for the cause, he states "I think I got bit". He does have a history of IV drug abuse, but denies any recent IV drug use or injections into his left hand. Of note, preoperative toxicology screen was positive for opiates, methamphetamine, MDMA, and THC. He admits he is hepatitis C positive, but denies HIV. Urgent surgical debridement was recommended of his left hand. He is in agreement. Risks, benefits, and alternatives of surgery were explained in detail. The surgical procedure, as well as postoperative recovery and rehabilitation, was also explained in detail. Risks include bleeding; persistent infection; damage to surrounding structures such as nerves, blood vessels, and tendons that run in the area; persistent pain, weakness, or stiffness; or need for further surgery. The patient understands all of this and wishes to proceed with surgery. Informed consent was obtained.
[2021-11-24] MEDS ORDERED: ePHEDrine sulfate 50 MG/ML AMP IV PRN (14:14)
[2021-11-24] MEDS ORDERED: ONDANSETRON INJ 2 MG/ML 2 ML VIAL IV PRN ×2 (14:14→16:18)
[2021-11-24] MEDS ORDERED: fentaNYL citrate 100 MCG/2 ML VIAL IV PRN (14:14)
[2021-11-24] MEDS ORDERED: ATROPINE SULFATE 0.1 MG/ML 10ML SYR IV PRN (14:14)
[2021-11-24] MEDS ORDERED: HYDROmorphone INJ 2 MG/ML SYR/VIAL ONE (14:52)
--- NOTE | 2021-11-24 15:05 | Post Operative Brief Note ---
Immediate Post Op Note v1 Date of Surgery November 24, 2021 Pre & Post Diagnosis Operation Date: 11/24/21 14:25 Left hand dorsal abscess I identified the patient and participated in the time-out.: Yes Procedure Operation Date: 11/24/21 14:25 Left hand irrigation and debridement of dorsal abscess Surgeon Lai Rothman Paediatric Surgeon Yosef Horn PA-C Estimated Blood Loss 10 Findings Consistent with Post-Op Diagnosis
--- NOTE | 2021-11-24 15:15 | Operative Report ---
Post Operative Report Pre & Post Diagnosis Operation Date: 11/24/21 14:25 Left hand dorsal abscess I identified the patient and participated in the time-out.: Yes Procedure Operation Date: 11/24/21 14:25 Left hand irrigation and debridement of dorsal abscess ([id number]) Surgeon Lai Rothman Animal Shelter Supervisor Yosef Horn PA-C Estimated Blood Loss 10 Findings Consistent with Post-Op Diagnosis Specimens Culture swab fluid sent for Gram stain, aerobic culture, anaerobic culture. Drains Medium Hemovac Anesthesia Type General Complications none Disposition Disposition: Recovery Room Indications Mr. Bullock is a 56-year-old male with pain and swelling on the dorsum of his left hand. History, clinical exam, and imaging were consistent with the above diagnosis. Risks, benefits, and alternatives of surgery were explained in detail. The patient understood all this and wished to proceed. Description of Procedure Patient was identified in the preoperative holding area. Operative extremity was marked. Patient was then brought back to the operating room, and general anesthesia was induced without complication. Tourniquet was placed on the left forearm. Forearm was then prepped and draped in a standard sterile fashion using Chlorhexidine prep. The forearm was then exsanguinated with an Esmarch starting proximal to the hand abscess, and the tourniquet was inflated. The fluid collection felt most superficial on the dorsal aspect of the fourth MCP joint. Longitudinal incision was started in this area and carried proximally all along the obvious extent of the abscess cavity. Immediately upon incision of the skin, a copious amount of thick purulent fluid drained from the abscess cavity. This purulent fluid was evacuated with direct pressure and suction. After evacuation of all of the obvious purulent fluid, I aggressively but carefully debrided the abscess cavity with curette and rongeur. There is no obvious infectious erosion of the underlying extensor tendons, and no joints appeared open or involved. After thorough debridement was complete, I then copiously irrigated the wound with sterile saline via gravity irrigation. Hemovac drain was then placed in the abscess cavity and brought out the skin in the dorsalradial aspect of the hand. Skin was then closed with 4-0 Prolene. I then anesthetized the wound bed with a 50/50 mixture of 1% lidocaine and 0.5% Marcaine without epinephrine. Sterile dressings were then applied with Xeroform, sterile gauze, sterile Webril, and Renny wrap. The drapes were removed, the patient was awakened from anesthesia, and taken to the Post Anesthesia Care Unit in stable condition. There were no immediate complications from the procedure. I was present and scrubbed for the entire procedure. Due to the complex nature of the procedure, the entire surgery was performed with the operational assistance of Ysoef Horn PA-C. The studio assistant, under direct supervision, was involved in the performance of all aspects of the surgical procedure including hemostasis, tissue incision and retraction, instrument management, patient positioning, and wound closure. I attest to the content of the Intraoperative Record and any orders documented therein. Any exceptions are noted below.
[2021-11-24] MEDS ORDERED: PHENYLEPHRINE 100MCG/ML 5ML SYR ONE (15:48)
[2021-11-24] MEDS ORDERED: GLYCOPYRROLATE 0.2 MG/ML VIAL ONE (15:48)
[2021-11-24] MEDS ORDERED: ROCURONIUM BROMIDE 10 MG/ML 5 ML VIAL IV ONE (15:48)
--- NOTE | 2021-11-24 15:56 | Anesthesiology Progress Note ---
Date of Service November 24, 2021 Anesthesia Post Procedure Vital Signs Vital Signs: Temp Pulse Pulse Pulse Pulse Resp BP 11/24/21 15:50 79 16 145/84 H 11/24/21 15:40 81 20 151/90 H 11/24/21 15:30 90 21 128/84 11/24/21 15:20 97.3 F L 96 H 14 159/89 H 11/24/21 14:17 98.6 F 91 H 18 164/90 H 11/24/21 11:19 98.8 F 71 18 161/92 H 11/24/21 07:46 98.2 F 72 18 157/82 H 11/24/21 07:41 61 11/24/21 03:57 98.8 F 75 18 161/85 H 11/24/21 02:05 71 11/23/21 23:00 99.3 F 71 88 18 153/81 H 11/23/21 20:11 99.3 F 88 18 170/90 H Pulse Ox 11/24/21 15:50 97 11/24/21 15:40 100 11/24/21 15:30 100 11/24/21 15:20 94 11/24/21 14:17 99 11/24/21 11:19 96 11/24/21 07:46 96 11/24/21 07:41 11/24/21 03:57 94 11/24/21 02:05 11/23/21 23:00 96 11/23/21 20:11 96 Pain Intensity Left Hand: Pain Intensity: 7 Transfer of Care Handoff Completed per policy Notes Mental Status: alert / awake / arousable and participated in evaluation Patient Amnestic to Procedure: Yes Nausea / Vomiting: adequately controlled Pain: adequately controlled Airway Patency, RR, SpO2: stable & adequate BP & HR: stable & adequate Hydration State: stable & adequate Anesthetic Complications: no major complications apparent and Pt Satisfied with anesthetic care
[2021-11-24] MEDS ORDERED: METOCLOPRAMIDE HCL INJ 5 MG/ML 2 ML VIAL IV PRN (16:18)
[2021-11-24] MEDS ORDERED: MAGNESIUM HYDROXIDE SUSP 30 ML UDC PO PRN (16:18)
[2021-11-24] MEDS ORDERED: NALOXONE HCL 0.4 MG/1 ML VIAL/CARP IV PRN (16:18)
[2021-11-24] MEDS ORDERED: SODIUM CHLORIDE 0.9% 1000ML 1,000 ML IV SCH (16:18)
[2021-11-24] MEDS ORDERED: bisacodyL 10 MG SUPP PR PRN (16:18)
[2021-11-24] MEDS ORDERED: DOCUSATE SODIUM 100 MG CAP PO SCH (21:00)
[2021-11-24] MEDS ORDERED: SENNA 8.6 MG TAB PO SCH (21:00)
[2021-11-25] MEDS: oxyCODONE HCL IR 5 MG TAB (IMMEDIATE RELEASE) PO PRN (02:33)
[2021-11-25] MEDS ORDERED: VANCOMYCIN TROUGH ONE ×2 (03:30→05:30)
[2021-11-25] MEDS: ACETAMINOPHEN 325 MG TAB PO SCH (06:02)
[2021-11-25] MEDS: CEFEPIME 2,000 MG in SYRINGE 0 ML IV SCH (06:02)
[2021-11-25 06:12] LABS: Hematocrit (blood only) 38.5 % (42-52); Hemoglobin 13.3 g/dL (14.0-18.0); Immature Granulocytes # (auto) 0.04 K/uL (0.00-0.02); Immature Granulocytes % (auto) 0.3 %; Lymphocytes # (auto) 1.23 K/uL (1.2-3.4); Lymphocytes % (auto) 8.2 %; Mean Corpuscular Hemoglobin 29.5 pg (25-34); Mean Corpuscular Hgb Conc 34.5 g/dL (32-36); Mean Corpuscular Volume 85.4 fL (80-100); Mean Platelet Volume 9.6 fL (7.4-10.4); Monocytes # (auto) 0.81 K/uL (0.11-0.59); Monocytes % (auto) 5.4 %; Neutrophils # (auto) 12.94 K/uL (1.4-6.5); Neutrophils % (auto) 86.1 %; Platelet Count 379 K/uL (130-400); RDW Coefficient of Variation 13.3 % (11.5-14.5); RDW Standard Deviation 41.6 fL (36.4-46.3); Red Blood Count 4.51 M/uL (4.7-6.1); White Blood Count 15.02 K/uL (4.8-10.8)
--- NOTE | 2021-11-25 06:16 | Hospitalist Progress Note ---
Date of Service November 25, 2021 Assessment & Plan Admission and Anticipated Discharge Date Admission Date: November 22, 2021 Subjective Randy wants to go home. He said he is doing fine and just want to go home. Adv ised to stay in hospital for antibiotics. Says he is doing fine and wants to go home. Explained the risk of infection getting worse, losing limb, infection going to heart and even . Randy says he is willing to take risk and adamant he wanted to go home. He signed out AMA. Advised to come back to hospital if not feeling well/ getting better. Results & Data Results & Data ([facility]) Vital Signs (Past 12 Hours) Vital Signs Temp Pulse Pulse Resp BP Pulse Ox 11/25/21 04:00 36.7 C 83 18 153/79 H 94 11/25/21 02:48 84 11/24/21 23:59 37.0 C 83 18 153/71 H 98 11/24/21 19:53 36.6 C 73 18 157/68 H 96
[2021-11-25 06:34] LABS: BUN Creatinine Ratio 14.5 (10-20); Calcium 9.4 mg/dl (8.5-10.1); Creatinine Clr Calc Pharmacy 113.4 ml/min; Est GFR (Non-African American) 102.7 ml/min; Potassium 3.5 mmol/L (3.5-5.1)
[2021-11-25] MEDS ORDERED: MULTIVITAMIN TAB PO SCH (09:00)
[2021-11-25] MEDS ORDERED: ADVANCED PROBIOTIC 1250 MG CAPSULE PO SCH (09:00)
[2021-11-26 06:51] LABS: Amphetamine Urine, Confirm 2770 ng/mL (<250); Codeine Urine NEGATIVE ng/mL (<50); Hydrocodone Urine NEGATIVE ng/mL (<50); Hydromor Urine NEGATIVE ng/mL (<50); MDA negative; MDEA negative; MDMA (Ecstasy) Urine, Confirm negative; Marijuana Quant, GCMS Urine 67 ng/mL (<5); Methamphetamine, Ur Confirm 12800 ng/mL (<250); Morphine Urine 2910 ng/mL (<50); Norhydrocodone Conf Ur NEGATIVE ng/mL (<50); Noroxycodone Urine 1050 ng/mL (<50); Oxycodone Urine 1410 ng/mL (<50); Oxymorph Urine 303 ng/mL (<50)
--- NOTE | 2021-12-01 12:26 | Coding Query ---
DEBRIDEMENT DOCUMENTATION To promote full compliance with coding requirements relating to patient care, physician participation is requested in all cases of automotive sales executive uncertainty. Please assist us with the question(s) below: Regarding 11/24/[address] an X in the parenthesis (x). If other, please document the finding: Type of Debridement: ( ) Excisional Debridement- Cutting away necrotic, devitalized tissue or slough to the level of viable tissue using a sharp instrument (i.e. scalpel, scissors, etc.) (X) Non Excisional Debridement- The removal of necrotic, devitalized tissue or slough by means of scraping, mechanical brushing, flushing, or washing (i.e. irrigation,whirlpool);minor removal of loose fragments. ( ) Other (please specify): Depth of Debridement: ( ) Skin (X) Skin and Subcutaneous Tissue ( ) Skin, Subcutaneous Tissue and Muscle ( ) Skin, Subcutaneous Tissue, Muscle and Bone ( ) Other (please specify): Thank you Lyn GARDNER
== END 2021-11-25 06:10 | disposition left against medical advice (07) | DRG 853 ==
LOC: ED 00:42 → SUATTDRO 04:53 → EDINP 04:53 → 2N 05:46